=== PATIENT | female | born 1950 | race Caucasian/White ===

== ENCOUNTER 2023-09-20 09:03 | Outpatient (CLI) | payer MEDICARE, OTHER | END 2023-09-20 09:04 | disposition home or self-care (01) | LOC: SCSMRI 09:03 | PROVIDERS: ATTEND Family Medicine | DX: M47.26 Other spondylosis with radiculopathy, lumbar region (principal); R29.898 Other symptoms and signs involving the musculoskeletal system; M51.16 Intervertebral disc disorders with radiculopathy, lumbar region; M51.37 Other intervertebral disc degeneration, lumbosacral region | CPT/HCPCS: 72148 ==

== ENCOUNTER 2024-11-01 10:07 | Outpatient (CLI) | payer MEDICARE, OTHER | END 2024-11-01 10:08 | disposition home or self-care (01) | LOC: DTY/OP 10:07 | PROVIDERS: ATTEND Family Medicine | DX: E11.9 Type 2 diabetes mellitus without complications (principal) | CPT/HCPCS: 97802 ==

== ENCOUNTER 2025-10-17 15:04 | Outpatient (CLI) | payer MEDICARE, OTHER | END 2025-10-17 15:05 | disposition home or self-care (01) | LOC: BICMAMMO 15:04 | PROVIDERS: ATTEND Family Medicine | DX: Z12.31 Encounter for screening mammogram for malignant neoplasm of breast (principal); M81.0 Age-related osteoporosis without current pathological fracture; M85.851 Other specified disorders of bone density and structure, right thigh; M85.852 Other specified disorders of bone density and structure, left thigh; Z78.0 Asymptomatic menopausal state; Z80.3 Family history of malignant neoplasm of breast; Z85.42 Personal history of malignant neoplasm of other parts of uterus; Z98.890 Other specified postprocedural states | CPT/HCPCS: 77063; 77067; 77080 ==